=== PATIENT | female | born 1990 | race Asian ===

== ENCOUNTER 2022-09-12 10:18 | Day surgery (SDC) | payer OTHER ==
[2022-09-09 13:05] LABS: BILIRUBIN,URINE NEGATIVE (NEGATIVE); BLOOD, URINE 2+ (NEGATIVE); CLARITY/URINE SL CLOUDY (CLEAR); COLOR,URINE YELLOW (YELLOW); GLUCOSE,URINE NEGATIVE (NEGATIVE); KETONES,URINE TRACE (NEGATIVE); LEUKOCYTE ESTERASE ,URINE 1+ (NEGATIVE); NITRITE, URINE POSITIVE (NEGATIVE); PROTEIN URINE NEGATIVE (NEGATIVE); UROBILINOGEN,URINE 0.2 (0.2-1.0)
[2022-09-09 13:07] LABS: BASOPHILS % (AUTO) 0.7 % (0.0-2.0); EOSINOPHILS # (AUTO) 0.1 K/uL (0.0-0.4); EOSINOPHILS % (AUTO) 0.9 % (0.0-4.0); HEMATOCRIT 37.7 % (36-48); HEMOGLOBIN 12.4 g/dL (12.0-16.0); LYMPHOCYTES # (AUTO) 2.1 K/uL (1.0-5.5); LYMPHOCYTES % (AUTO) 28.2 % (20.5-51.5); MEAN CORPUSCULAR HEMOGLOBIN 28 pg (27-31); MEAN CORPUSCULAR HGB CONC 33 % (32-36); MEAN CORPUSCULAR VOLUME 86 fL (79.0-98.0); MONOCYTES # (AUTO) 0.5 K/uL (0.0-1.0); MONOCYTES % (AUTO) 6.5 % (1.7-9.3); NEUTROPHILS # (AUTO) 4.7 K/uL (1.8-7.7); NEUTROPHILS % (AUTO) 63.7 % (40.0-70.0); PLATELET COUNT (AUTO) 194 K/uL (130-430); RED BLOOD CELL COUNT(AUTO) 4.38 MIL/uL (4.2-6.2); RED CELL DISTRIBUTION WIDTH 13.3 % (9.0-15.0); WHITE BLOOD COUNT (AUTO) 7.4 K/uL (4.8-10.8)
[2022-09-09 13:23] LABS: BACTERIA,URINE MANY /HPF (None Seen); YEAST,URINE Rare /HPF (None Seen)
[~2022-09-12] VITALS: Ht 170.2 cm; Wt 77.1 kg
[2022-09-12] MEDS ORDERED: NS IRRIG SOLN 1000 ML IR ONE (12:25)
[2022-09-12] MEDS ORDERED: MIDAZOLAM HCL 5 MG/5 ML VIAL ONE (12:25)
[2022-09-12] MEDS ORDERED: PROPOFOL 200MG/ 20ML VIAL (DIPRIVAN) IV ONE (12:25)
[2022-09-12] MEDS ORDERED: NS 1000 ML IV.SOLN IV ONE (12:25)
[2022-09-12] MEDS ORDERED: SEVOFLURANE 15 MIN GAS INH ONE (12:25)
[2022-09-12] MEDS ORDERED: ceFAZolin SODIUM 2 GM VIAL ONE (12:25)
[2022-09-12] MEDS ORDERED: OXYTOCIN 10 UNIT/ML VIAL ONE (12:25)
[2022-09-12] MEDS ORDERED: ONDANSETRON HCL 4 MG/2 ML VIAL ONE (12:25)
[2022-09-12] MEDS ORDERED: LR 1,000 ML IV.SOLN IV ONE (12:25)
[2022-09-12] MEDS ORDERED: fentaNYL CITRATE/PF 100 MCG/2 ML AMP ONE (12:25)
[2022-09-12] MEDS ORDERED: HYDROcodone/ACETAMIN 5-325 MG TAB (NORCO/ VICODIN) PO PRN (13:00)
[2022-09-12] MEDS ORDERED: ONDANSETRON HCL 4 MG/2 ML VIAL IVP PRN ×2 (13:00→13:30)
[2022-09-12] MEDS ORDERED: OXYCODONE/ACETAMINOPHEN 5-325 TABLET PO PRN ×2 (13:00)
[2022-09-12] MEDS ORDERED: ACETAMINOPHEN 325 MG TABLET PO ONE (13:30)
[2022-09-12] MEDS ORDERED: METOCLOPRAMIDE HCL 10 MG/2 ML VIAL IVP PRN (13:30)
[2022-09-12] MEDS ORDERED: KETOROLAC TROMETHAMINE 30 MG VIAL IVP PRN (13:30)
[2022-09-12] MEDS ORDERED: HYDROmorphone 1 MG/ML INJ. CARTRIDGE IVP PRN (13:30)
[2022-09-12 16:18] VITALS: BP_SYST 116
== END 2022-09-12 17:30 | disposition home or self-care (01) ==
LOC: SDS 10:18 → SMU 10:19 → SDS 17:30
PROVIDERS: ATTEND Specialist
DX: O03.4 Incomplete spontaneous abortion without complication (principal); Z20.822 Contact with and (suspected) exposure to COVID-19
CPT/HCPCS: 81000; 85025; 86886; 86900; 86901; 87081; 36415 ×2; 59812; 88305; 87426; J2250; J2405; J2590; J2704; J3010; J7120; J7030